=== PATIENT | female | born 1955 | race Caucasian/White ===

== ENCOUNTER → 2019-06-01 | Outpatient (CLI) | payer MEDICARE, OTHER ==
[2019-06-01 14:17] LABS: BASO % 0.6 % (0.0-2.0); EOS # 0.2 (0.0-0.7); EOS % 2.9 % (0-4.0); GRAN # 4.4 (1.4-6.5); GRAN % 63.3 % (42.2-75.2); HEMATOCRIT 41.5 % (37.0-47.0); HEMOGLOBIN 13.3 g/dl (12.5-16.0); LYMPH # 1.9 (1.2-3.4); LYMPH % 26.4 % (20.0-51.0); MEAN CELL VOLUME 96 fl (80.0-100.0); MEAN CORPUSCULAR HEMOGLOBIN 31 pg (27.0-31.0); MEAN CORPUSCULAR HGB CONC 32 g/dl (33.0-37.0); MEAN PLATELET VOLUME 9.3 fl (7.4-10.4); MONO # 0.5 (0.1-0.6); MONO % 6.4 % (1.7-9.3); PLATELET COUNT 268 K/mm3 (130-400); RED BLOOD COUNT 4.32 M/mm3 (4.10-5.30); REDCELL DISTRIBUTION WIDTH-CV 12.3 % (11.5-14.5)
[2019-06-01 14:20] LABS: IRON,SERUM 75 ug/dL (35-150)
[2019-06-01 14:28] LABS: ALBUMIN 4.1 gm/dL (3.5-5.0); BILIRUBIN,TOTAL 0.4 mg/dL (0.0-1.0); CALCIUM 9.3 mg/dL (8.4-10.2); CREATININE, serum 0.92 (0.52-1.25); POTASSIUM 3.9 mmol/L (3.4-5.0); TOTAL PROTEIN 7.1 gm/dL (6.4-8.2)
[2019-06-01 14:30] LABS: TOTAL IRON BINDING CAPACITY 312 ug/dL (265-497)
[2019-06-01 23:01] LABS: HEPATITIS B SURFACE ANTIGEN Negative (Negative)
[2019-06-05 17:36] LABS: LIVER FIBROSIS APOLIPOPROTEIN 155 mg/dL (>=140)
== END ==
LOC: COL.LAB 12:07
PROVIDERS: Physician Assistant
DX: R74.8 Abnormal levels of other serum enzymes (principal); K59.00 Constipation, unspecified; R19.7 Diarrhea, unspecified

== ENCOUNTER 2019-06-08 10:27 | Day surgery (SDC) | payer MEDICARE ==
[~2019-06-08] VITALS: Ht 162.6 cm; Wt 82.9 kg
[2019-06-08 10:58] VITALS: BP 142/77; PULSE 44; TEMP 97.5
--- NOTE | 2019-06-08 11:09 | NUR ---
TO RM AT 1035- CALL LIGHT IN REACH AT BEDSIDE.
[2019-06-08] MEDS ORDERED: ASPIRIN E.C. 8181 MG PO (11:16)
[2019-06-08] MEDS ORDERED: LIPITOR20 MG PO (11:19)
[2019-06-08] MEDS ORDERED: CELEBREX 200MG200 MG PO (11:19)
[2019-06-08] MEDS ORDERED: BREO ELLIPTA 21 EACH IH (11:20)
[2019-06-08] MEDS ORDERED: LASIX 40MG TABL40 MG PO (11:21)
[2019-06-08] MEDS ORDERED: NEURONTIN600 MG/TAB PO (11:22)
[2019-06-08] MEDS ORDERED: PATADAY 2.5 ML2.5 ML OU (11:24)
[2019-06-08] MEDS ORDERED: DITROPAN XL10 MG PO (11:25)
[2019-06-08] MEDS ORDERED: PAXIL 30MG30 MG PO (11:27)
[2019-06-08] MEDS ORDERED: SEROQUEL50 MG PO (11:29)
[2019-06-08] MEDS ORDERED: DESYREL 50MG50 MG PO (11:30)
[2019-06-08] MEDS ORDERED: VENTOLIN0.09 MG IH (11:30)
[2019-06-08 12:25] VITALS: BP 127/66; PULSE 49
--- NOTE | 2019-06-08 12:25 | NUR ---
Pt to [facility] via cart from [facility]. Pt drowsy, but awake. Pt ambulates to recliner with stand by assistance. Warm blanket provided. COffee and muffin provided. in room. Pt denies pain or nausea. Call light within reach.
[2019-06-08 12:40] VITALS: BP 115/60; PULSE 51
--- NOTE | 2019-06-08 12:40 | NUR ---
Pt continues to rest. Tolerating food and fluids without difficulties. Call light within reach.
[2019-06-08 12:55] VITALS: BP 111/71; PULSE 42
--- NOTE | 2019-06-08 12:55 | NUR ---
Pt visiting with . Pt denies needs. Call light within reach.
[2019-06-08 13:10] VITALS: BP 112/72; PULSE 57
--- NOTE | 2019-06-08 13:10 | NUR ---
into speak with pt at this time.
--- NOTE | 2019-06-08 13:20 | NUR ---
IV site discontinued with all parts intact. Discharge instructions reviewed. Pt voices understanding. Pt up to dress. Call light within reach.
--- NOTE | 2019-06-08 13:30 | NUR ---
Pt escorted to private car via wheel chair. Pt accompanied home by her .
== END 2019-06-08 13:30 | disposition home or self-care (01) ==
LOC: SDCO 10:27
DX: K58.2 Mixed irritable bowel syndrome (principal); K21.0 Gastro-esophageal reflux disease with esophagitis; K44.9 Diaphragmatic hernia without obstruction or gangrene; Z86.010 Personal history of colon polyps; K21.9 Gastro-esophageal reflux disease without esophagitis; K57.30 Diverticulosis of large intestine without perforation or abscess without bleeding; K58.9 Irritable bowel syndrome, unspecified; Z88.2 Allergy status to sulfonamides; Z88.8 Allergy status to other drugs, medicaments and biological substances; Z91.041 Radiographic dye allergy status; J44.9 Chronic obstructive pulmonary disease, unspecified; Z79.899 Other long term (current) drug therapy; Z79.82 Long term (current) use of aspirin; Z87.891 Personal history of nicotine dependence
CPT/HCPCS: J2250; J2405; J3010; J7030

== ENCOUNTER 2019-10-10 13:11 | Outpatient (RCR) | payer MEDICARE ==
[~2019-10-10 13:11] MED LIST: ASPIRIN E.C. 8181 MG PO; BREO ELLIPTA 21 EACH IH; CELEBREX 200MG200 MG PO; DESYREL 50MG50 MG PO; DITROPAN XL10 MG PO; LASIX 40MG TABL40 MG PO; LIPITOR20 MG PO; NEURONTIN600 MG/TAB PO; PATADAY 2.5 ML2.5 ML OU; PAXIL 30MG30 MG PO; SEROQUEL50 MG PO; VENTOLIN0.09 MG IH
== END 2020-01-08 | disposition home or self-care (01) ==
LOC: WSST
DX: R13.10 Dysphagia, unspecified (principal)

== ENCOUNTER → 2019-10-15 | Outpatient (CLI) | payer MEDICARE | LOC: BHSO 10:56 | DX: F33.41 Major depressive disorder, recurrent, in partial remission (principal) ==

== ENCOUNTER → 2019-10-18 | Outpatient (CLI) | payer MEDICARE | LOC: COL.RAD 08:10 | DX: R13.10 Dysphagia, unspecified (principal) ==

== ENCOUNTER → 2019-12-21 | Outpatient (CLI) | payer MEDICARE | LOC: BHSO 13:02 | DX: F33.42 Major depressive disorder, recurrent, in full remission (principal) | CPT/HCPCS: G0463 ==

== ENCOUNTER 2020-03-06 05:30 | Day surgery (SDC) | payer MEDICARE ==
[~2020-03-06] VITALS: Ht 162.6 cm; Wt 84.6 kg
[2020-03-06] MEDS ORDERED: CYMBALTA 60MG60 MG PO (06:15)
[2020-03-06] MEDS ORDERED: IMDUR 60MG60 MG/TAB PO (06:16)
[2020-03-06] MEDS ORDERED: NITROSTAT0.4 MG/TAB SL (06:17)
[2020-03-06] MEDS ORDERED: OPTISOURCE TAB1 EAC1 PO (06:18)
[2020-03-06] MEDS ORDERED: PRILOTC PO (06:18)
[2020-03-06 06:20] VITALS: BP 127/78; PULSE 52; TEMP 97.8
[2020-03-06] MEDS ORDERED: NORCO 325 MG-51 TAB PO (07:44)
[2020-03-06 07:50] VITALS: BP 82/45; PULSE 58; TEMP 97.7
--- NOTE | 2020-03-06 07:50 | NUR ---
Patient arrives to [facility] via cart, accompanied by DEGREASER and CANVAS BASTER. Bedside report is received. Monitoring is applied -VSS on 2L nasal cannula. She has a dry dressing covered with MORAIMA Wrap on her RUE. She is drowsy, but awakens to voice. Her right hand is normal in color, cap refill WNL, she is able to move and feel her hand. She denies any pain or nausea. Lights are dimmed for comfort. Spouse is at the bedside.
[2020-03-06 08:05] VITALS: BP 92/53; PULSE 53
--- NOTE | 2020-03-06 08:05 | NUR ---
VSS on room air. Patient is resting comfortably. Neurovascular assessment of RUE remains WNL.
[2020-03-06 08:35] VITALS: BP 106/54; PULSE 56
--- NOTE | 2020-03-06 08:35 | NUR ---
Pt awake, alert, and oriented. Requested coffee and water, and she was able to drink with no issues. Pt states her pain is 0/10. NC O2 removed and O2 92%.
[2020-03-06 08:50] VITALS: BP 107/60; PULSE 50
--- NOTE | 2020-03-06 08:50 | NUR ---
Assisted pt with removing some of the surgical wash on her arms. Pt states that she feels awake and comfortable to go home.
[2020-03-06 09:00] VITALS: BP 112/63; PULSE 50
--- NOTE | 2020-03-06 09:19 | NUR ---
Patient has met discharge criteria. Discharge instructions are discussed. She denies any questions and verbalizes understanding. Her spouse signs her discharge instructions, as the patient's dominant hand was the surgical site today. She is changing to her clothing independently.
--- NOTE | 2020-03-06 09:34 | NUR ---
Patient is escorted to the exit via wheelchair by staff. She is discharged to home with ride in private vehicle at 0934.
== END 2020-03-06 09:34 | disposition home or self-care (01) ==
LOC: SDCO 05:30
DX: G56.01 Carpal tunnel syndrome, right upper limb (principal); D64.9 Anemia, unspecified; M19.90 Unspecified osteoarthritis, unspecified site; J44.9 Chronic obstructive pulmonary disease, unspecified; F32.9 Major depressive disorder, single episode, unspecified; M79.7 Fibromyalgia; G47.33 Obstructive sleep apnea (adult) (pediatric); K21.9 Gastro-esophageal reflux disease without esophagitis; I10 Essential (primary) hypertension; G89.29 Other chronic pain; F41.9 Anxiety disorder, unspecified; G62.9 Polyneuropathy, unspecified; Z79.82 Long term (current) use of aspirin; Z88.3 Allergy status to other anti-infective agents; Z88.2 Allergy status to sulfonamides; Z88.8 Allergy status to other drugs, medicaments and biological substances; Z90.710 Acquired absence of both cervix and uterus; Z87.891 Personal history of nicotine dependence
CPT/HCPCS: J0690; J2704; J3010; J7120

== ENCOUNTER 2020-06-27 08:23 | Day surgery (SDC) | payer MEDICARE, OTHER ==
[~2020-06-27] VITALS: Ht 162.6 cm; Wt 81.4 kg
[2020-06-27] VITALS (8 sets, daily range): BP systolic 115–140; BP diastolic 70–82; PULSE 44–73; TEMP 97.3
[~2020-06-27 08:23] MED LIST changes: +CYMBALTA 60MG60 MG PO; +IMDUR 60MG60 MG/TAB PO; +NITROSTAT0.4 MG/TAB SL; +NORCO 325 MG-51 TAB PO; +OPTISOURCE TAB1 EAC1 PO; +PRILOTC PO
[2020-06-27 09:18] LABS: HEMATOCRIT 39.1 % (37.0-47.0); HEMOGLOBIN 12.1 g/dl (12.5-16.0); MEAN CELL VOLUME 94 fl (80.0-100.0); MEAN CORPUSCULAR HEMOGLOBIN 29 pg (27.0-31.0); MEAN CORPUSCULAR HGB CONC 31 g/dl (33.0-37.0); MEAN PLATELET VOLUME 9.5 fl (7.4-10.4); PLATELET COUNT 306 K/mm3 (130-400); RED BLOOD COUNT 4.16 M/mm3 (4.10-5.30); REDCELL DISTRIBUTION WIDTH-CV 13.2 % (11.5-14.5)
[2020-06-27 09:24] LABS: INR 1.1 (0.8-3.0); PROTHROMBIN TIME 11.9 SECONDS (9.7-12.8)
[2020-06-27 09:25] LABS: CALCIUM 8.9 mg/dL (8.4-10.2); CREATININE, serum 0.73 (0.52-1.25); POTASSIUM 4.1 mmol/L (3.4-5.0)
[2020-06-27 09:27] LABS: PARTIAL THROMBOPLASTIN TIME 34.8 SECONDS (26.0-37.0)
[2020-06-27] MEDS ORDERED: NORCO 325 MG-7.1 TAB PO (09:27)
[2020-06-27] MEDS ORDERED: PREDNISONE20 MG PO (09:37)
--- NOTE | 2020-06-27 12:49 | NUR ---
PT HAS BEEN DOING WELL DURING HER RECOVERY, SHE HAS BEEN ABLE TO EAT LUNCH AND IS SITTING UP PLAYING ON PHONE. HEADACHE IMPROVED AFTER LUNCH, COFFEE, AND WITH OKAY FROM [employer] [place], ONE OF HER OWN [place] THAT SHE HAD IN HER PURSE. RT RADIAL SITE UNCHANGED. CMS INTACT DISTAL. WE HAVE REVIEWED DC INSTRUCTIONS R/T CARDIAC CATH AND MODERATE SEDATION. PT DENIED ANY QUESTIONS ABOUT THESE INSTRUCTIONS. PLAN TO BEGIN DEFLATING TR BAND AT 1300
--- NOTE | 2020-06-27 14:00 | NUR ---
Pt is ready for departure. TR band was deflated without a problem, site dressed with bandaid, folded 2x2 and coban dressing, cms remains intact distal. Pt has been ambulatory in her room with steady gait. Discharge instructions and fu instructions given, pt denies any questions. IV dc'd with cath intact. Pt to exit via wheelchair.
== END 2020-06-27 14:11 | disposition home or self-care (01) ==
LOC: COL.CAR
PROVIDERS: Internal Medicine Interventional Cardiology
DX: I25.119 Atherosclerotic heart disease of native coronary artery with unspecified angina pectoris (principal); I10 Essential (primary) hypertension; R29.6 Repeated falls; R60.0 Localized edema; J44.9 Chronic obstructive pulmonary disease, unspecified; E78.5 Hyperlipidemia, unspecified; G47.30 Sleep apnea, unspecified; Z79.899 Other long term (current) drug therapy; Z79.82 Long term (current) use of aspirin; Z20.822 Contact with and (suspected) exposure to COVID-19
CPT/HCPCS: J1200; J1644; J2250; J3010; Q9967

== ENCOUNTER 2022-06-23 15:39 | Emergency (ER) | payer MEDICARE ==
[~2022-06-23] VITALS: Ht 162.6 cm; Wt 75.5 kg
[~2022-06-23 15:39] MED LIST changes: +NORCO 325 MG-7.1 TAB PO; +PREDNISONE20 MG PO
[2022-06-23 16:03] VITALS: BP 149/97; TEMP 98.3
[2022-06-23 16:39] VITALS: PULSE 80
[2022-06-25] MEDS ORDERED: FOSAMAX 70MG TA70 MG PO (13:09)
[2022-06-25] MEDS ORDERED: MASON NATURAL2000 IU PO (13:10)
[2022-06-25] MEDS ORDERED: ZYRTEC 10MG10 MG PO (13:10)
[2022-06-25] MEDS ORDERED: COLESTID 1GM1 G PO (13:12)
[2022-06-25] MEDS ORDERED: SINGULAIR 110 MG/TAB PO (13:14)
[2022-06-25] MEDS ORDERED: IMODIUM 2MG CAPS2 MG PO (13:14)
[2022-06-25] MEDS ORDERED: TUMS500 MG PO (13:19)
[2022-06-25] MEDS ORDERED: PRAVACHOL 20MG20 MG PO (13:21)
== END 2022-06-23 16:39 | disposition home or self-care (01) ==
LOC: COL.ER 15:39
DX: R13.10 Dysphagia, unspecified (principal)

== ENCOUNTER → 2024-03-23 | Outpatient (CLI) | payer MEDICARE ==
[~2024-03-23] MED LIST changes: +COLESTID 1GM1 G PO; +FOSAMAX 70MG TA70 MG PO; +Gadoterate 15 ML VIAL IV ONE; +IMODIUM 2MG CAPS2 MG PO; +MASON NATURAL2000 IU PO; +PRAVACHOL 20MG20 MG PO; +SINGULAIR 110 MG/TAB PO; +TUMS500 MG PO; +ZYRTEC 10MG10 MG PO
== END ==
LOC: COL.RAD 10:16
DX: R29.6 Repeated falls (principal); R26.89 Other abnormalities of gait and mobility
CPT/HCPCS: A9575